=== PATIENT | female | born 1945 | race Caucasian/White ===

== ENCOUNTER → 2016-12-05 | Outpatient (CLI) | payer OTHER ==
--- NOTE | 2016-12-05 13:33 | MA ---
Screening Digital Mammogram with Digital Breast Tomosynthesis Clinical Indications: Routine screening. Technique: Standard cephalocaudal projections are obtained. Digital breast tomosynthesis was perform ed in the MLO projection with reconstruction at 1.0 mm slice thickness and composite MLO views recons tructed. This examination is processed by the CAD computer aided detection system. Comparison: November 09, 2015; November 05, 2014; and studies dating back to October 12, 2008. Breast density: B; There are scattered areas of fibroglandular density. Findings: CAD was reviewed. There are no new masses, new clusters of microcalcifications, or significant axillary lymphadenopathy . Impression: Negative mammogram. BI-RADS 1. Recommendation: Routine screening mammogram is recommended in one year. [facility], [facility] will send a result letter to the patient. Negative mammography should not preclude additional workup of a clinically suspicious finding. The patient's information is entered into a reminder system with a target due date for her next mammo gram.
== END ==
LOC: FIMAGING 09:14
DX: Z12.31 Encounter for screening mammogram for malignant neoplasm of breast (principal)
CPT/HCPCS: G0202

== ENCOUNTER → 2017-12-09 | Outpatient (CLI) | payer OTHER | LOC: FIMAGING 09:38 | PROVIDERS: ATTEND Internal Medicine | DX: Z12.31 Encounter for screening mammogram for malignant neoplasm of breast (principal) ==

== ENCOUNTER → 2018-01-29 | Outpatient (CLI) | payer OTHER | LOC: FIMAGING 08:59 | PROVIDERS: ATTEND Internal Medicine | DX: Z13.820 Encounter for screening for osteoporosis (principal); M85.89 Other specified disorders of bone density and structure, multiple sites; Z96.643 Presence of artificial hip joint, bilateral ==

== ENCOUNTER 2018-03-02 12:48 | Inpatient (IN) | payer OTHER ==
--- NOTE | 2018-03-02 13:03 | CPEKG ---
Heart Rate: 88 RR Interval: 682 P-R Interval: 140 QRSD Interval: 78 QT Interval: 360 QTC Interval: 436 P [place]: 67 QRS Jolo: 57 T Wave Jolo: -51 EKG Severity - ABNORMAL ECG - EKG Impression: SINUS RHYTHM EKG Impression: NONSPECIFIC REPOL ABNORMALITY, DIFFUSE LEADS Electronically Signed By: Sonia Carpio 02-Mar-2018 14:34:30
--- NOTE | 2018-03-02 13:10 | EDPHY ---
H & P Stated Complaint: dyspnea x 3 days, EMS from MD's office Time Seen by Provider: 03/02/18 13:07 HPI/ROS: CHIEF COMPLAINT: Cough, shortness of breath HISTORY OF PRESENT ILLNESS: The patient is a 72 y/o female arriving with her friend complaining of a worsening cough and shortness of breath for the last 5 days. She first noticed a cough on Friday that temporarily seemed to improve until Friday. Symptoms have worsened over the weekend and she now feels short of breath, diffusely weak, and has had no appetite. She has not taken anything for her symptoms other than cough drops. She is still drinking water and feels much better since receiving supplemental O2 here. She denies fever, sore throat , myalgias, abdominal pain, nausea, vomiting, diarrhea, urinary symptoms, chest pain, leg swelling. She did get a flu vaccination and Pneumovax this season. No personal history of cardiac or respiratory disease. REVIEW OF SYSTEMS: A ten point review of systems was performed and is negative with the exception of the items mentioned in the HPI. Past medical history: 1. Hypothyroidism 2. Mood disorder - Depakote 3. Glaucoma Past surgical history: 1. Bilateral hip replacements x3 2. Hysterectomy 3. Cataract surgery Family history: Cancer Social history: Never smoker. No alcohol use. Friend at bedside. Lives alone. Works at [employer]. General Appearance: Alert. Vital signs reviewed. Oxygen saturation 84% on room air, respiratory rate 22. Eyes: Pupils equal and round, no conjunctival injection, no discharge. Anicteric. ENT, Mouth: Mucous membranes are moist, no oropharyngeal erythema or edema. Neck: No lymphadenopathy, supple. Respiratory: Lung sounds are distant to auscultation with scattered expiratory wheezes; no rales or rhonchi. Cardiovascular: Regular rate and rhythm; no murmur, rub, or gallop. Gastrointestinal: Abdomen is soft and nontender, no masses or organomegaly. Skin: Warm and dry, no rashes on exposed skin, normal color. Back: Nontender to palpation over the thoracolumbar spine. No CVAT. Extremities: No lower extremity edema, no calf tenderness or swelling. Neurological: Alert and oriented. Moving all four extremities easily and equally. Psychiatric: Normal affect. - Personal History Current Tetanus/Diphtheria Vaccine: Yes Current Tetanus Diphtheria and Acellular Pertussis (TDAP): Yes - Medical/Surgical History Hx Asthma: No Hx Chronic Respiratory Disease: No Hx Diabetes: No Hx Cardiac Disease: No Hx Renal Disease: No Hx Cirrhosis: No Hx Alcoholism: No Hx HIV/AIDS: No Hx Splenectomy or Spleen Trauma: No Other PMH: bilat hip replacements, "mood swings", hypothyroid - Social History Smoking Status: Never smoked Constitutional: Initial Vital Signs Temperature (C) 36.5 C 03/02/18 13:05 Respiratory Rate 22 H 03/02/18 13:05 Blood Pressure 115/76 03/02/18 13:05 O2 Sat (%) 84 L 03/02/18 13:05 O2 Delivery Mode Room Air Allergies/Adverse Reactions: No Known Allergies Allergy (Unverified 03/02/18 13:09) Home Medications: Medication Instructions Recorded Latanoprost 0.005% [Xalatan 0.005% 1 drop EACHEYE HS 03/02/18 (*)] Levothyroxine [Synthroid 75 mcg 75 mcg PO DAILY06 03/02/18 (*)] Valproic Acid [Depakene 250MG (*)] 500 mg PO BID 03/02/18 ZOLPIDEM TARTRATE [Ambien CR 12.5 12.5 mg PO HS 03/02/18 mg] Medical Decision Making - Diagnostics EKG Interpretation: 12 lead EKG is interpreted in Trace master View by emergency department physician. Imaging Results: Imaging Impressions Chest X-Ray 03/02/18 13:25 Impression: 1. Right upper lobe pneumonia. 2. Recommend follow p until clear. Findings and recommendations discussed with Emergency Department physician, Dr. Sonia Carpio at 1433 hours on March 02, 2018. Final report concurs with initial preliminary interpretation. Imaging: I viewed and interpreted images myself ED Course/Re-evaluation: This is a 72 y/o female with no known cardiac or respiratory who presents with a 5-day history of progressive cough, dyspnea, weakness, and loss of appetite. She has diminished breath sounds bilaterally with scattered expiratory wheezing. Her initial SpO2 was 84% on room air. This has improved to 90% on 4LPM upon my assessment. She is feeling much better with supplemental O2. Presentation concerning for pneumonia or other infectious respiratory process. Plan for IV, labs, EKG, chest x-ray, and symptomatic management. Duo neb and 1L IV NS ordered. The 12 lead EKG was interpreted by myself. Sinus mechanism. See hard copy and/ or "tracemaster" electronic copy for interpretation. Chest x-ray: Right upper lobe infiltrate. 1gm IV Rocephin and 500mg IV azithromycin ordered for pneumonia. DuoNeb administered. At the time of reexamination she is resting comfortably but has pulse ox of 88% on 3 L. oxygen advanced 4 L. She is being admitted to the hospitalist service. Dr. Alcocer accepts admission. Differential Diagnosis: Shortness of breath including but not limited to pulmonary infectious process, COPD, asthma, pulmonary embolus and congestive heart failure. - Data Points Laboratory Results: Laboratory Results 03/02/18 13:00 03/02/18 13:00 03/02/18 03/02/18 13:00 13:00 WBC 9.18 10^3/uL 10^3/uL (3.80-9.50) RBC 5.20 10^6/uL 10^6/uL (4.18-5.33) Hgb 15.7 g/dL g/dL (12.6-16.3) Hct 45.9 % % (38.0-47.0) MCV 88.3 fL fL (81.5-99.8) MCH 30.2 pg pg (27.9-34.1) MCHC 34.2 g/dL g/dL (32.4-36.7) RDW 11.9 % % (11.5-15.2) Plt Count 265 10^3/uL 10^3/uL (150-400) MPV 9.9 fL fL (8.7-11.7) Neut % (Auto) 80.5 % H % (39.3-74.2) Lymph % (Auto) 14.9 % L % (15.0-45.0) [place] % (Auto) 2.8 % L % (4.5-13.0) Eos % (Auto) 0.0 % L % (0.6-7.6) Baso % (Auto) 0.4 % % (0.3-1.7) Nucleat RBC Rel Count 0.0 % % (0.0-0.2) Absolute Neuts (auto) 7.38 10^3/uL H 10^3/uL (1.70-6.50) Absolute Lymphs (auto) 1.37 10^3/uL 10^3/uL (1.00-3.00) Absolute Monos (auto) 0.26 10^3/uL L 10^3/uL (0.30-0.80) Absolute Eos (auto) 0.00 10^3/uL L 10^3/uL (0.03-0.40) Absolute Basos (auto) 0.04 10^3/uL 10^3/uL (0.02-0.10) Absolute Nucleated RBC 0.00 10^3/uL 10^3/uL (0-0.01) Immature Gran % 1.4 % H % (0.0-1.1) Immature Gran # 0.13 10^3/uL H 10^3/uL (0.00-0.10) Sodium 137 mEq/L mEq/L (135-145) Potassium 3.7 mEq/L mEq/L (3.5-5.2) Chloride 96 mEq/L L mEq/L (97-110) Carbon Dioxide 23 mEq/l mEq/l (22-31) Anion Gap 18 mEq/L H mEq/L (8-16) BUN 18 mg/dL mg/dL (7-23) Creatinine 0.8 mg/dL mg/dL (0.6-1.0) Estimated GFR > 60 Glucose 150 mg/dL H mg/dL (70-100) Calcium 8.8 mg/dL mg/dL (8.5-10.4) Medications Given: Discontinued Medications Albuterol/Ipratropium (Duoneb) 3 ml IH EDNOW ONE Stop: 03/02/18 13:26 Last Admin: 03/02/18 13:44 Dose: 3 ml Departure - Departure Disposition: [facility] Acute Clinical Impression: Hypoxemia Pneumonia Qualifiers: Pneumonia type: due to unspecified organism Laterality: right Lung location: upper lobe of lung Qualified Code(s): J18.1 - Lobar pneumonia, unspecified organism Condition: Fair Report Scribed for: Sonia Carpio Report Scribed by: Renetta Sánchez Date of Report: 03/02/18 Time of Report: 13:16 Physician Review and Approval Statement: 03/02/18 13:09 Portions of this note were transcribed by the medical recruiter. I, Dr. Sonia Carpio, personally performed the history, physical exam, and medical decision- making; and confirmed the accuracy of the information in the transcribed note.
[2018-03-02] MEDS ORDERED: IPRATROPIUM/ALBUTEROL 3 ML DEYVIAL IH ONE (13:25)
[2018-03-02 13:30] LABS: PLATELET COUNT 265 10^3/uL (150-400)
[2018-03-02] MEDS ORDERED: AZITHROMYCIN IV 500 MG in D5W 250 ML IV ONE (14:04)
[2018-03-02] MEDS ORDERED: AZITHROMYCIN IV 500 MG in NS 250 ML IV ONE (14:30)
[2018-03-02] MEDS ORDERED: ACETAMINOPHEN 325 MG TAB PO PRN (14:30)
[2018-03-02] MEDS ORDERED: ONDANSETRON 4 MG/2 ML VIAL IVP PRN (14:30)
--- NOTE | 2018-03-02 15:22 | GHP ---
[f rep st] HISTORY AND PHYSICAL DATE OF ADMISSION: 03/02/2018 CHIEF COMPLAINT: Shortness of breath. HISTORY: The patient is a 72-year-old female, who has been feeling sick for about 6 days. Six days ago she had a 24-hour period where she felt really terrible, stayed home from work with a cough, but then improved and went back to work and thought that she was over it. She subsequently then got wors e again and is now persistently short of breath with a nonproductive cough. She denies any chest garrett n or fever. She works at a preschool. She was seen at her primary care doctor's office today and se nt to the emergency room, presumably for hypoxemia. She is 84% on room air. PAST MEDICAL HISTORY: 1. Hypothyroidism. 2. Glaucoma. 3. Mood disorder. PAST SURGICAL HISTORY: Total hip arthroplasty, hysterectomy, cataracts. MEDICATIONS: Please see computer record for full detailed list. ALLERGIES: No known drug allergies. SOCIAL HISTORY: No smoking. No alcohol. She lives alone. REVIEW OF SYSTEMS: Complete review of systems obtained. Review of systems negative for constitution al, HEENT, GI, pulmonary, cardiovascular, , hematology, skin, musculoskeletal, endocrine, psych, ex cept for positives and negatives as in HPI. FAMILY HISTORY: Reviewed and noncontributory to presenting complaint. PHYSICAL EXAMINATION: GENERAL: Well-developed, well-nourished female, in no acute distress. VITAL SIGNS: Temperature 36.5, pulse 95, respirations 22, blood pressure 115/76, satting 84% on room air. EYES: Normal conjunctivae. Pupils equal and reactive to light. ENT: Normal ears and nose. Heari ng intact. Normal teeth. Oropharynx moist. NECK: Trachea midline. No thyromegaly. CHEST: Ratna l respiratory effort. LUNGS: Scattered rales and rhonchi. No wheeze. CARDIOVASCULAR: Regular rhy thm. No murmur. No extremity edema. ABDOMEN: Soft, nontender. No hepatosplenomegaly. SKIN: War m, dry, intact. No rash. MUSCULOSKELETAL: No cyanosis or clubbing. Strength 5/5 upper and lower e xtremities. NEUROLOGIC: Cranial nerves intact. Normal sensation to light touch. PSYCH: Alert and oriented x3. Normal mood and affect. Normal judgment and insight. Normal memory. LABORATORY DATA: White count 9.18, hematocrit 45.9, platelets 265. Sodium 137, potassium 3.7, chlor estefany 96, bicarb 23, BUN 18, creatinine 0.8, glucose 180. EKG reviewed by me and my personal interpret ation is normal sinus rhythm. No ST or T-wave changes. Chest x-ray shows right upper lobe pneumonia . ASSESSMENT/PLAN: 1. Pneumonia. I suspect there may be a viral element, so we will check a respiratory PCR. I am als o suspicious, however, for bacterial superinfection as she initially improved and then worsened again . We will continue intravenous ceftriaxone and azithromycin as started in the emergency room. She d id have wheezing noted on admission to the emergency room, which responded to a nebulizer, which I wi ll continue. 2. Acute respiratory failure. 84% on room air with some respiratory distress on presentation. Curr ently stabilized on 4 L. 3. Mood disorder. Continue Depakote. CODE STATUS: Full. ADMISSION STATUS: 1. Will admit to observation, re-evaluate tomorrow regarding ongoing need for hospitalization. 2. DVT prophylaxis. She is moderate to high risk. We will place her on subcu Lovenox. /[id number]/MODL
[2018-03-02] MEDS: IPRATROPIUM/ALBUTEROL 3 ML DEYVIAL IH SCH (17:22)
[2018-03-02] MEDS: LATANOPROST 0.005% 2.5 ML OPHT DROPS EACHEYE SCH (20:19)
[2018-03-02] MEDS: VALPROIC ACID 250 MG CAP PO SCH (20:19)
[2018-03-02] MEDS: ZOLPIDEM TARTRATE 5 MG TAB PO SCH (20:21)
[2018-03-03] MEDS: IPRATROPIUM/ALBUTEROL 3 ML DEYVIAL IH SCH ×4 (03:58→17:16)
[2018-03-03] MEDS: LEVOTHYROXINE 75 MCG TAB PO SCH (05:42)
[2018-03-03 06:15] LABS: PLATELET COUNT 232 10^3/uL (150-400)
[2018-03-03] MEDS ORDERED: POTASSIUM CL 20 MEQ TAB PO ONE (08:26)
--- NOTE | 2018-03-03 08:26 | HOSPPROG ---
Hospitalist Progress Note Assessment/Plan: # CAP - stop azith with neg resp panel (doubt legionella) - cont rocephin - recheck CXR tomorrow am # acute hypoxic resp failure - cont abx, BDs, add mucinex today; consider mucumyst # ST depressions - no cardiac hx, no CP; may be normal repol, may be related to hypoxia - recheck ECG tomorrow am # mood d/o - depakote # hypothyroid - synthroid # hypoK - replete # dvt ppx - lovenox Subjective: has more energy today; still coughing with sputum production Objective: Vital Signs Temp Pulse Resp BP Pulse Ox 37.2 C 75 12 96/57 L 95 03/03/18 07:54 03/03/18 07:54 03/03/18 07:54 03/03/18 07:54 03/03/18 07:54 Microbiology 03/02/18 15:07 Respiratory Panel (PCR) - Final Nasal, Sinus - [place] Viral Transport No Organism Detected Laboratory Results 03/03/18 05:25 03/03/18 05:25 03/02/18 03/03/18 03/04/18 05:59 05:59 05:59 Intake Total 750 Output Total 400 Balance 350 - Physical Exam Constitutional: uncomfortable Cardiovascular: regular rate and rhythym, no murmur, rub, or gallop Respiratory: no respiratory distress, inspiratory crackles (mild R upper quadrant), other (coughing), No reduced air movement, No expiratory wheeze Gastrointestinal: soft, non-tender abdomen, no palpable masses ICD10 Worksheet Patient Problems: Problems Problem Status Onset Pneumonia Acute Hypoxemia Acute
--- NOTE | 2018-03-03 08:52 | CPEKG ---
Heart Rate: 80 RR Interval: 750 P-R Interval: 128 QRSD Interval: 80 QT Interval: 384 QTC Interval: 443 P [place]: 60 QRS [place]: 47 EKG Severity - ABNORMAL ECG - EKG Impression: SINUS RHYTHM EKG Impression: MULTIPLE VENTRICULAR PREMATURE COMPLEXES EKG Impression: BORDERLINE T ABNORMALITIES, ANTERIOR LEADS Electronically Signed By: Candelaria Kapoor 03-Mar-2018 11:01:06
[2018-03-03] MEDS ORDERED: AZITHROMYCIN IV 500 MG in NS 250 ML IV SCH (09:00)
[2018-03-03] MEDS: guaiFENesin 600 MG TAB.ER PO SCH ×2 (09:29→21:03)
[2018-03-03] MEDS: VALPROIC ACID 250 MG CAP PO SCH ×2 (09:30→21:03)
[2018-03-03] MEDS: ENOXAPARIN 40 MG/0.4 ML SYR SC SCH (09:30)
--- NOTE | 2018-03-03 14:58 | ASMTCASEMG ---
Living Arrangements What is your living Answers: Alone arrangement? Who do you live with? Type Of Residence What kind of residence do Answers: House you live in? Discharge Plan Comments Coordination Status Comments Notes: Pt is a 72 y/o female admitted for PNA. CM spoke w/ MANEULA Johnson and Dr. Keating regarding d/c POC. Therapies have been ordered and awaiting recommendations. Needs are TBD at this time. CM to follow. Plan: TBD Date Signed: 03/03/2018 02:58 PM Electronically Signed By:DEANGELO Sanchez
--- NOTE | 2018-03-03 16:12 | PDMN ---
Medical Necessity Medical necessity: change to IP; los>2mn for CAP, acute hypoxic resp failure, hypokalemia, and ST depressions, possibly r/t hypoxia; requires continued IV abx , add mucinex, f/u CXR and ECG, replete K+; per order and progress note 03/03/18 0804
[2018-03-03] MEDS: LATANOPROST 0.005% 2.5 ML OPHT DROPS EACHEYE SCH (21:03)
[2018-03-03] MEDS: ZOLPIDEM TARTRATE 5 MG TAB PO SCH (21:03)
[2018-03-03] MEDS: IBUPROFEN 600 MG TAB PO PRN (21:28)
[2018-03-04] MEDS: IPRATROPIUM/ALBUTEROL 3 ML DEYVIAL IH SCH ×5 (04:28→21:23)
[2018-03-04] MEDS: LEVOTHYROXINE 75 MCG TAB PO SCH (06:00)
[2018-03-04] MEDS: ENOXAPARIN 40 MG/0.4 ML SYR SC SCH (08:03)
[2018-03-04] MEDS: guaiFENesin 600 MG TAB.ER PO SCH ×2 (08:03→20:20)
[2018-03-04] MEDS: VALPROIC ACID 250 MG CAP PO SCH ×2 (08:03→20:20)
--- NOTE | 2018-03-04 13:21 | HOSPPROG ---
Hospitalist Progress Note Assessment/Plan: 72y F with c/o SOB. First encounter, Chart reviewed. # CAP - stop azith with neg resp panel (doubt legionella) - cont rocephin - CXR still shows RPNA # acute hypoxic resp failure - cont abx, BDs, add mucinex today; consider mucumyst # ST depressions - -no cardiac hx, no CP; may be normal repol, may be related to hypoxia # mood d/o - -depakote # hypothyroid - -synthroid # hypoK - -replete # dvt ppx - -lovenox Subjective: Up in chair. Hungry. Still not feeling well. Objective: Vital Signs Temp Pulse Resp BP Pulse Ox 36.6 C 66 18 105/56 L 100 03/04/18 10:59 03/04/18 12:09 03/04/18 12:09 03/04/18 10:59 03/04/18 12:09 Laboratory Results 03/03/18 05:25 03/03/18 05:25 03/03/18 03/04/18 03/05/18 05:59 05:59 05:59 Intake Total 750 Output Total 400 Balance 350 - Physical Exam Constitutional: no apparent distress, appears nourished, not in pain Eyes: PERRL, anicteric sclera, EOMI Ears, Nose, Mouth, Throat: moist mucous membranes, hearing normal, ears appear normal Cardiovascular: No JVD, No tachycardia, No edema Respiratory: no respiratory distress, no rales or rhonchi, reduced air movement Gastrointestinal: normoactive bowel sounds, No tenderness, No ascites Skin: warm, normal color, No mottled Musculoskeletal: normal joint ROM, no joint effusions, generalized weakness Neurologic: AAOx3 Psychiatric: not anxious, not encephalopathic, poor insight, poor judgement ICD10 Worksheet Patient Problems: Problems Problem Status Onset Pneumonia Acute Hypoxemia Acute
[2018-03-04] MEDS: BENZONATATE 100 MG CAP PO PRN (16:11)
--- NOTE | 2018-03-04 17:14 | ASMTCMCOM ---
CM Note CM Note Notes: Pt cleared by PT, anticipate pt will dc home independent w/support of friends and family when medically stable. CM availble for any changes. DC Plan: Independent Date Signed: 03/04/2018 05:13 PM Electronically Signed By:Mercedez Anton RN
[2018-03-04] MEDS: ZOLPIDEM TARTRATE 5 MG TAB PO SCH (20:20)
[2018-03-04] MEDS: LATANOPROST 0.005% 2.5 ML OPHT DROPS EACHEYE SCH (20:20)
[2018-03-05] MEDS: LEVOTHYROXINE 75 MCG TAB PO SCH (05:30)
[2018-03-05] MEDS: BENZONATATE 100 MG CAP PO PRN (08:08)
[2018-03-05] MEDS: guaiFENesin 600 MG TAB.ER PO SCH ×2 (08:08→20:41)
[2018-03-05] MEDS: ENOXAPARIN 40 MG/0.4 ML SYR SC SCH (08:08)
[2018-03-05] MEDS: VALPROIC ACID 250 MG CAP PO SCH ×2 (08:08→20:42)
[2018-03-05] MEDS: IPRATROPIUM/ALBUTEROL 3 ML DEYVIAL IH SCH ×3 (09:22→23:01)
[2018-03-05] MEDS: predniSONE 20 MG TAB PO SCH (11:10)
--- NOTE | 2018-03-05 11:35 | HOSPPROG ---
Hospitalist Progress Note Assessment/Plan: 72y F with c/o SOB. # CAP - stop azith with neg resp panel (doubt legionella) - cont rocephin - CXR still shows RPNA -add prednisone -slow to improve, consider ct chest # acute hypoxic resp failure - cont abx, BDs, add mucinex; consider mucumyst # ST depressions - -no cardiac hx, no CP; may be normal repol, may be related to hypoxia # mood d/o - -depakote # hypothyroid - -synthroid # hypoK - -replete # dvt ppx - -lovenox #Dispo -unclear, still ill -weak and tired -cont supportive care in hospital Subjective: Feeling very tired today. No pain. No other issues. Objective: Vital Signs Temp Pulse Resp BP Pulse Ox 36.8 C 71 14 108/67 94 03/05/18 08:00 03/05/18 09:25 03/05/18 09:25 03/05/18 08:00 03/05/18 09:25 Laboratory Results 03/03/18 05:25 03/03/18 05:25 03/04/18 03/05/18 03/06/18 05:59 05:59 05:59 Intake Total 680 Balance 680 - Physical Exam Constitutional: appears nourished, uncomfortable Eyes: PERRL, anicteric sclera Ears, Nose, Mouth, Throat: moist mucous membranes, hearing normal Cardiovascular: No JVD, No edema Respiratory: no respiratory distress, reduced air movement Gastrointestinal: No tenderness, No ascites Skin: warm, normal color Musculoskeletal: no joint effusions, generalized weakness Neurologic: AAOx3 Psychiatric: interacting appropriately, not anxious, not encephalopathic ICD10 Worksheet Patient Problems: Problems Problem Status Onset chronic disease mgmt/transitional care Acute Pneumonia Acute Hypoxemia Acute
[2018-03-05] MEDS: ZOLPIDEM TARTRATE 5 MG TAB PO SCH (20:41)
[2018-03-05] MEDS: IBUPROFEN 600 MG TAB PO PRN (20:42)
[2018-03-05] MEDS: LATANOPROST 0.005% 2.5 ML OPHT DROPS EACHEYE SCH (20:43)
[2018-03-06] MEDS: LEVOTHYROXINE 75 MCG TAB PO SCH (04:30)
[2018-03-06] MEDS: IPRATROPIUM/ALBUTEROL 3 ML DEYVIAL IH SCH ×4 (05:03→20:25)
[2018-03-06] MEDS: guaiFENesin 600 MG TAB.ER PO SCH ×2 (09:17→20:37)
[2018-03-06] MEDS: predniSONE 20 MG TAB PO SCH (09:17)
[2018-03-06] MEDS: BENZONATATE 100 MG CAP PO PRN (09:17)
[2018-03-06] MEDS: VALPROIC ACID 250 MG CAP PO SCH ×2 (09:17→20:37)
[2018-03-06] MEDS: ENOXAPARIN 40 MG/0.4 ML SYR SC SCH (09:18)
--- NOTE | 2018-03-06 10:25 | HOSPPROG ---
Hospitalist Progress Note Assessment/Plan: 72y F with c/o SOB. # CAP - s/p azith and rocephin, currently rocephin alone. Resp panel negative. Personally reviewed serial cxr and they are notable for continued RUL infiltrate , no significant change. Symptomatically improving. # acute hypoxic resp failure: continues to be in the 80s on RA, continue BD, IS and ambulation. Will continue prednisone until tomorrow. # ECG changes: non specific, no chest pain, if chest pain occurs will get trop # mood d/o - -depakote # hypothyroid - -synthroid # hypoK - -will recheck in am # dvt ppx - -lovenox #Dispo - will likely be ready to dc tomorrow if o2 sats improve Patient new to my care. Old records reviewed and summarized as above. Subjective: no significant overnight events, patient feeling better today Objective: Vital Signs Temp Pulse Resp BP Pulse Ox 36.4 C 60 14 118/69 94 03/06/18 07:53 03/06/18 09:01 03/06/18 09:01 03/06/18 07:53 03/06/18 09:01 Laboratory Results 03/03/18 05:25 03/03/18 05:25 03/05/18 03/06/18 03/07/18 05:59 05:59 05:59 Intake Total 680 500 Balance 680 500 awake alert anicteric mmm rrr no mrg dec bs throughout soft nt nd no cce warm dry well perfused oriented approrpiate ICD10 Worksheet Patient Problems: Problems Problem Status Onset chronic disease mgmt/transitional care Acute Pneumonia Acute Hypoxemia Acute
--- NOTE | 2018-03-06 14:41 | ASMTCMCOM ---
CM Note CM Note Notes: Met w/pt re; dc recommendation of homecare. Pt declines the need, states will not be homebound but would like CM to stop by tomorrow. Pt otherwise has good support w/ friends and family. DC Plan: Independent Date Signed: 03/06/2018 02:40 PM Electronically Signed By:Mercedez Anton RN
[2018-03-06] MEDS: ZOLPIDEM TARTRATE 5 MG TAB PO SCH (20:37)
[2018-03-06] MEDS: LATANOPROST 0.005% 2.5 ML OPHT DROPS EACHEYE SCH (20:37)
[2018-03-07] MEDS: BENZONATATE 100 MG CAP PO PRN (05:02)
[2018-03-07] MEDS: LEVOTHYROXINE 75 MCG TAB PO SCH (05:02)
[2018-03-07] MEDS: IPRATROPIUM/ALBUTEROL 3 ML DEYVIAL IH SCH ×3 (06:02→15:51)
[2018-03-07 07:31] VITALS: BP 117/71
[2018-03-07] MEDS: predniSONE 20 MG TAB PO SCH (08:12)
[2018-03-07] MEDS: guaiFENesin 600 MG TAB.ER PO SCH (08:12)
[2018-03-07] MEDS: VALPROIC ACID 250 MG CAP PO SCH (08:12)
[2018-03-07] MEDS: ENOXAPARIN 40 MG/0.4 ML SYR SC SCH (08:13)
--- NOTE | 2018-03-07 12:10 | PDHOMEO2F ---
Home Oxygen Face to Face Home Orders: I certify that a physician or a nurse practitioner or physician's cement tester assistant has had a [id number] encounter with this patient on the date of this order due to the diagnosis listed, which relates to the primary reason the patient requires home oxygen. Alternative treatments have been tried, or considered, and deemed ineffective. It is anticipated that supplemental oxygen will result in improvement with treatment. Home oxygen qualifying diagnosis: pneumonia Home oxygen secondary diagnosis: atelectasis SpO2 on room air (%): 84 PaO2 on room air (mmHG): 93 Frequency of home oxygen needed: continuous Home oxygen liters per minute: 2 Home oxygen delivery device: nasal cannula Concentrator: Yes E-tanks for mobility and back up: Yes If ordering portable O2, is the patient mobile in the home?: Yes I certify that, based on these findings, the home oxygen is medically necessary for this patient for the following length of time. Length of time home oxygen needed: 1 month
--- NOTE | 2018-03-07 12:11 | PDDCSUM ---
Discharge Summary Discharge Summary: Dates of service 03/02-03/07/17 Consultations: none Procedures performed: none Hospital course by problem: 72y F with c/o SOB. # CAP - s/p azith and rocephin, currently rocephin alone. Resp panel negative. Personally reviewed serial cxr and they are notable for continued RUL infiltrate. Given slow improvement, plan to complete a prolonged course with 5 more days of abx on levofloxacin. Recommending patient f/u for repeat cxr in 4- 6 weeks from discharge to prove improvement. # acute hypoxic resp failure: continues to desat to the 80s on RA with exertion but at rest only requiring 0.5L to maintain o2 sats in the 90s. Will dc with supplemental O2, suspect she will need it for another 1-2 weeks. # ECG changes: non specific, no chest pain, recommend outpatient f/u # mood d/o - stable, continued on depakote # hypothyroid - continue synthroid # hypoK - resolved DC to home f/u with PCP in the next week Items for follow up: -monitoring of o2 sats -repeat cxr in 4-6 weeks - if no improvement in O2 or if CXR remains abnormal recommend further w/u including chest CT and pulmonary function testing > 35 min spent in dc more than half in coordination of care
--- NOTE | 2018-03-07 13:00 | ASMTCMCOM ---
CM Note CM Note Notes: Met with pt again regarding homecare but pt still declines. She will dc home independent when medically stable, CM available for any changes. DC Plan: Independent Date Signed: 03/07/2018 01:00 PM Electronically Signed By:Mercedez Anton RN
--- NOTE | 2018-03-07 15:01 | PDIAF ---
- Diagnosis Code Status: Full Code - Medication Management Discharge Medications: Medications to Continue on Transfer Latanoprost 0.005% [Xalatan 0.005% (*)] 1 drop EACHEYE HS 03/02/18 [Last Taken 03/01/18] Levothyroxine [Synthroid 75 mcg (*)] 75 mcg PO DAILY06 03/02/18 [Last Taken 08/11] Valproic Acid [Depakene 250MG (*)] 500 mg PO BID 03/02/18 [Last Taken 03/02/18] ZOLPIDEM TARTRATE [Ambien CR 12.5 mg] 12.5 mg PO HS 03/02/18 [Last Taken ] Acetaminophen [Tylenol 325mg (*)] 650 mg PO Q4 PRN tab 03/07/18 [Last Taken Unknown] Benzonatate [Tessalon Pearles] 100 mg PO TID PRN #30 cap 03/07/18 [Last Taken Unknown] Ibuprofen [Motrin (*)] 600 mg PO Q6HRS PRN tab 03/07/18 [Last Taken Unknown] guaiFENesin [Mucinex 600 MG (*)] 1,200 mg PO BID tab.er 03/07/18 [Last Taken Unknown] levOFLOXACIN [Levofloxacin] 750 mg PO DAILY #5 tablet 03/07/18 [Last Taken Unknown] Discharge Medications: Refer to the Discharge Home Medication list for PRN reason. - Orders Services needed: Home Care, Registered Nurse, Physical Therapy, Occupational Therapy Home Care Face to Face: I certify that this patient was under my care and that I had the required [id number] encounter meeting the encounter requirements on the discharge day. My findings support the fact that the patient is homebound as defined in Home Care Face to Face Continued: CMS Chapter 7 Medicare Benefits Manual 30.1.1 , The condition of the patient is such that there exists a normal inability to leave home and consequently, leaving home would require a considerable and taxing effort. Isolation Type: None Diet Recommendation: no restrictions on diet Additional Instructions: Follow up with your PCP in the next week. Recommend a follow up chest x-ray in 4 -6 weeks to ensure complete resolution of pneumonia. Stay on oxygen until you follow up with your primary care doctor, she will determine when it is safe for you to come off of the oxygen. - Follow Up Care Current Providers and Referrals: Anamaria Craig MD [Medical Doctor] - Patient,NotPresent [Unknown] - As per Instructions
--- NOTE | 2018-03-07 15:54 | ASMTCMCOM ---
CM Note CM Note Notes: Spoke w/PT, really thinks pt needs homecare and has new O2, states pt is now agreeing to hc. CM went and spoke with pt who is willing for CM to set up homecare. CM spoke w/Jessica, sales operations RN for [facility]. She is willing to take pt for RN/PT/OT, MD notified. DC Plan: Home Care/ [facility] Date Signed: 03/07/2018 03:53 PM Electronically Signed By:Mercedez Anton RN
--- NOTE | 2018-03-07 18:59 | ASDISCHSUM ---
Discharge Information Plan Status:Home with Home Health Medically Cleared to Leave: Discharge Date:03/07/2018 04:13 PM D/C Disposition:Home Health Service ADT D/C Disposition:Home, Routine, Self-Care Projected Discharge Date:03/07/2018 11:00 AM Transportation at D/C:Friend Discharge Delay Reason: Follow-Up Date:03/07/2018 11:00 AM Discharge Slot: Final Diagnosis: Placement Information Referral Type:*Home Health Care Services Referral ID:[id number] Provider Name:[facility] Address 1:[address] [place] [address] Address 2: City:[place] Selection Factors: State:[place] Patient Contact Information Contact Name:ROGER Relationship:Son Address:[address] [place]- [phone] Work Phone: [facility]:[place] Alternate Phone: State/Zip Code:[place] [address] Email: Financial Information Financial Class:Medicare Primary Plan Desc:MEDICARE INPATIENT Primary Plan Number:[id number] Secondary Plan Desc:[place] INDEMNITY Secondary Plan Number:[id number] Assessment Information [facility] Initial CM Assessment Living Arrangements What is your living Answers: Alone arrangement? Who do you live with? Type Of Residence What kind of residence do Answers: House you live in? Discharge Plan Comments Coordination Status Comments Notes: Pt is a 72 y/o female admitted for PNA. CM spoke w/ MANUELA Johnson and Dr. Keating regarding d/c POC. Therapies have been ordered and awaiting recommendations. Needs are TBD at this time. CM to follow. Plan: TBD Date Signed: 03/03/2018 02:58 PM Electronically Signed By:DEANGELO Sanchez LACE GUERDA Length of stay for Answers: 4-6 days current admission Acuity / Level of Answers: Yes Care: Did the patient have an inpatient admission? Comorbidities - select Answers: Other Notes: Hypothyroidism all that apply # of Emergency department Answers: 1-2 visits in the last 6 months Social determinants Answers: Mental health diagnosis (anxiety, depression, pers onality disorders, etc.) Score: 12 Date Signed: 03/07/2018 01:00 PM Electronically Signed By:Mercedez Anton RN [facility] CM Progress Note CM Note CM Note Notes: Pt cleared by PT, anticipate pt will dc home independent w/support of friends and family when medically stable. CM availble for any changes. DC Plan: Independent Date Signed: 03/04/2018 05:13 PM Electronically Signed By:Mercedez Anton RN [facility] CM Progress Note CM Note CM Note Notes: Met w/pt re; dc recommendation of homecare. Pt declines the need, states will not be homebound but would like CM to stop by tomorrow. Pt otherwise has good support w/ friends and family. DC Plan: Independent Date Signed: 03/06/2018 02:40 PM Electronically Signed By:Mercedez Anton RN [facility] CM Progress Note CM Note CM Note Notes: Met with pt again regarding homecare but pt still declines. She will dc home independent when medically stable, CM available for any changes. DC Plan: Independent Date Signed: 03/07/2018 01:00 PM Electronically Signed By:Mercedez Anton RN [facility] CM Progress Note CM Note CM Note Notes: Spoke w/PT, really thinks pt needs homecare and has new O2, states pt is now agreeing to hc. CM went and spoke with pt who is willing for CM to set up homecare. CM spoke tiera/Jessica, respiratory practitioner RN for [facility]. She is willing to take pt for RN/PT/OT, notified. DC Plan: Home Care/ [facility] Date Signed: 03/07/2018 03:53 PM Electronically Signed By:Mercedez Anton RN Case Management Discharge Plan Note Case Management Discharge Discharge Order Complete? Answers: Yes Patient to Obtain Answers: Independently Medications Transportation Arranged Answers: Family/Friends Faxed Final Orders Answers: Yes Discharge Comments Notes: D/tiera BALDWIN, final orders faxed. Jessica at [facility] notified, RN to call report. Date Signed: 03/07/2018 03:54 PM Electronically Signed By:Mercedez Anton RN Intervention Information Intervention Type:*IM-Signed Date of Service:03/06/2018 02:39 PM Patient Type:Inpatient Staff Member:Mandy Matta Hours: Discipline: Severity: Comment:
== END 2018-03-07 16:13 | disposition home or self-care (01) | DRG 193 ==
LOC: EDUNIT# → OBSVTOIN 14:09 → INTOOBSV 14:09 → F3E 16:06
PROVIDERS: ADMIT Internal Medicine; ATTEND Internal Medicine
DX: J18.9 Pneumonia, unspecified organism (principal); J96.01 Acute respiratory failure with hypoxia; E87.6 Hypokalemia; E03.9 Hypothyroidism, unspecified; Z96.643 Presence of artificial hip joint, bilateral; H40.9 Unspecified glaucoma; F39 Unspecified mood [affective] disorder
CPT/HCPCS: 97110-GP; 97116-GP; 97161-GP; 97165-GO; 97530-GO; 97530-GP; 97535-GO; G0378; G8978-GP-CJ; G8979-GP-CI; G8980-GP-CI; G8987-GO-CI; G8988-GO-CI; J0456; J0696; J1650; J7512

== ENCOUNTER → 2018-04-21 | Outpatient (CLI) | payer OTHER | LOC: FIMAGING 08:11 | PROVIDERS: ATTEND Internal Medicine | DX: J18.9 Pneumonia, unspecified organism (principal); R09.02 Hypoxemia ==

== ENCOUNTER → 2018-06-04 | Outpatient (CLI) | payer OTHER | LOC: FIMAGING 07:46 | PROVIDERS: ATTEND Internal Medicine | DX: J18.9 Pneumonia, unspecified organism (principal) ==

== ENCOUNTER → 2018-07-14 | Outpatient (CLI) | payer OTHER | LOC: FIMAGING 10:40 | PROVIDERS: ATTEND Internal Medicine | DX: J18.9 Pneumonia, unspecified organism (principal) ==

== ENCOUNTER → 2018-12-10 | Outpatient (CLI) | payer OTHER | LOC: FIMAGING 09:00 | PROVIDERS: ATTEND Internal Medicine | DX: Z12.31 Encounter for screening mammogram for malignant neoplasm of breast (principal) ==